=== PATIENT | female | born 1960 | race Caucasian/White ===

== ENCOUNTER 2024-11-03 03:42 | Observation (INO) ==
[2024-11-03] MEDS: BACITRACIN ZINC OINT 1 PACKET TOP STA (06:39)
--- NOTE | 2024-11-03 06:57 | ED Physician Documentation ---
History of Present Illness Stated complaint Stated Complaint: GLF, ABD PX Chief complaint Chief Complaint: Trauma Ch/Bk Additonal information Additional information: 64-year-old female presenting after fall at home at 0200 hrs. tonight. She states that she was ambulating from the bathroom when she thinks her pant leg got caught on an object. She fell forward impacting her right side of her thorax on a bookshelf. She states that she immediately had pain in the right lateral and anterior lower ribs. She states that she has pain when she breathes in deeply. Rates her pain currently as a 6 out of 10. Endorses mild pain only if she is not moving or not breathing deeply. She states that she did not her head, did not lose consciousness. She is not on blood thinners. She denies any neck pain. She has no tenderness throughout her thoracic or lumbar spine. No abdominal tenderness, no CVA tenderness. No tense palpation on the left side of her thorax. At baseline patient has Parkinson's disease, but does not endorse any other significant medical comorbidities. Review of Systems Status of ROS: See HPI Meds/Allgy Home Medications Ambulatory Orders Medication Instructions Recorded Confirmed carbidopa 25 mg tablet 25 mg PO Q6H 05/18/24 hydrocodone 5 mg-acetaminophen 325 1 tab PO Q4H PRN pa in #25 tabs 05/18/24 07/03/24 mg tablet melatonin 10 mg capsule 10 mg PO HS PRN 05/18/2412/18 rasagiline 1 mg tablet 1 mg PO QDAY 05/18/24 rivastigmine tartrate 1.5 mg 1.5 mg PO BID 05/18/24 capsule rivastigmine tartrate 3 mg capsule 3 mg PO BID 05/18/ 5 07/03/24 Allergies Allergies Allergy/AdvReac Type Severity Reaction Status Date / Time No Known Drug Allergies Allergy Verified 11/03/24 03:51 PFSH Active Problems All Active Problems (Updated 11/03/24 @ 07:58 by Bryant Field MD) Multiple fractures of ribs of right side (Acute) Constipation (Acute) Hemorrhoids, external, thrombosed (Acute) Contusion of rib on right side (Acute) Medical History Medical History (Updated 11/03/24 @ 07:58 by Bryant Field MD) Parkinson disease Parkinsons Social History Social History Do you feel safe in your home environment?: Yes History of physical, verbal, emotional, or financial abuse?: No POLST Patient has POLST: No Exam Exam Vital Signs: Vital Signs x48h Temp Pulse Resp BP Pulse Ox 11/03/24 07:11 87 20 154/96 H 95 11/03/24 03:47 36.0 C L 83 16 135/89 H 97 Constitutional Appears approximate stated age, resting in examination bed HENMT normocephalic and head/scalp atraumatic Eyes conjunctivae normal and no scleral icterus Neck/C-Spine cervical spine nontender, cervical full ROM noted and supple Chest Significant tender to palpation in right lateral lower ribs, as well as right anterior lower ribs. Small abrasion noted at roughly eighth rib space in the right lateral ribs. Respiratory Clear breath sounds bilaterally, though diminished in the right base. Appears to be splinting on exam secondary to pain. Satting at 95% on room air. No wheeze, no rhonchi. Cardiovascular normal heart rate noted, regular rhythm noted, no murmur and peripheral pulses 2+ throughout Gastrointestinal abdomen soft to palpation, nontender to palpation and nondistended Back/Pelvis no thoracic spine tenderness, no lumbar spine tenderness, thoracic spine ROM normal, lumbar spine ROM normal and no paraspinal muscle tenderness noted Extremities normal to inspection, normal to palpation, no tenderness and full ROM Neurology ornamenter hand II-XII intact, no movement abnormality noted, no focal motor deficit noted, no sensory deficits noted and GCS 15 Psychiatry mental status grossly normal and oriented x3 Results Vitals Vitals: Vital Signs - 24 hr 11/03/24 03:47 11/03/24 07:11 Temperature 36.0 C L Pulse Rate 83 87 Respiratory Rate 16 20 Blood Pressure 135/89 H 154/96 H O2 Saturation 97 95 O2 Source Room air Room air Pain Intensity 7 Oxygen O2 Source Room air PD Medical Decision Making ED course ED course: Assessment: 64-year-old female complaining of pain in her right lateral and lower ribs after she sustained a fall in which she hit her right side against a nightstand. She did not hit her head, did not lose consciousness, she is not on blood thinners. DDx: Includes but is not limited to, rib fracture, pulmonary contusion, pleural effusion, pneumothorax, rib contusion, etc. Workup: Chest x-ray 2 view shows questionable osseous changes in the right posterior ribs [address] chest without contrast demonstrates multiple fractures between ribs 8 through 11, with multiple that are mild to moderately displaced. There is also a small pleural effusion/pulmonary contusion in the right lower lobe. No pneumothorax. Treatment: Offered patient's opioid analgesia which she refused citing adverse side effects including nausea. Patient had taken Tylenol and ibuprofen at home shortly before arrival and also denied these when these were offered. Did receive a lidocaine patch. Discussion: I paged Hospitalist medicine who recommended we call surgery, and preferred that surgery would admit this patient to their service. Given that she is 64 years old with greater than 3 rib fractures, she is an ICU candidate. Patient was signed out to Dr. Goss, pending consultation with surgery, and admission. Please refer to her note for subsequent cares for this patient completed after my shift. Discharge Plan Discharge Patient Disposition: ED Place in Observation Condition: Stable Clinical Impression: Multiple fractures of ribs of right side Prescriptions: No Action hydrocodone-acetaminophen 5-325 mg tablet 1 tab PO Q4H PRN (Reason: pain) Qty: 25 0RF carbidopa 25 mg tablet 25 mg PO Q6H melatonin 10 mg capsule 10 mg PO HS PRN rasagiline 1 mg tablet 1 mg PO QDAY rivastigmine tartrate 1.5 mg capsule 1.5 mg PO BID rivastigmine tartrate 3 mg capsule 3 mg PO BID Print Language: Djiboutian Stand Alone Forms: PCP List
[2024-11-03] MEDS: ACETAMINOPHEN 500 MG TABLET PO STA (08:29)
--- NOTE | 2024-11-03 09:15 | HISTORY & PHYSICAL EXAMINATION ---
History of Present Illness History of Present Illness HPI Comment/Other: 64F History of Parkinsons presented to the ED after mechanical fall at home at 0200 hrs. She was ambulating from the bathroom when she thinks her pant leg got caught on an object. She fell forward impacting her right side of her thorax on a bookshelf. She states that she did not her head, did not lose consciousness. She is not on blood thinners. She states that she immediately had pain in the right lateral and anterior lower ribs, worse with inspiration. She denies any neck pain, back, RUE or other pain. Has pain with inspiration but is not feeling short of breath. Is saturating at 99% on room air. She had one prior fall from chair in 04/2024 with single rib fx, visited ED but not admitted. Feels that the pain was worse the first time compared to today. Current baseline at home with her spouse she is not using any assistive walking devices, however has recently been considering a cane or walker. She has chronic constipation for which she uses MiraLAX on a as needed basis. She has a frequent upset stomach or nausea that she attributes to her Parkinson's medications which leads to poor appetite and she has experienced resultant weight loss over the last year. She is not a Parkinson's treatment and support group. Colonoscopy Questionnaire In the last 30 days have you experienced these symptoms? PFSH Active Problems All Active Problems (Updated 11/03/24 @ 11:51 by Bernadette Alvarez DO) Chronic nausea (Acute) Osteopenia (Chronic) Multiple rib fractures involving four or more ribs (Acute) Fall as cause of accidental injury at home as place of occurrence (Acute) Constipation (Acute) Medical History Medical History (Updated 11/03/24 @ 11:51 by Bernadette Alvarez DO) Hemorrhoids, external, thrombosed Parkinson disease Surgical History Surgical History (Updated 11/03/24 @ 11:51 by Bernadette Alvarez DO) History of Social History Social History Smoking Status: Never smoker Do you feel safe in your home environment?: Yes History of physical, verbal, emotional, or financial abuse?: No POLST Patient has POLST: No Meds/Allgy Home Medications Ambulatory Orders Medication Instructions Recorded Confirmed carbidopa 25 mg tablet 25 mg PO QID 05/18/24 melatonin 10 mg capsule 10 mg PO HS PRN sleep 11/03/24 rasagiline 1 mg tablet 1 mg PO DAILY 05/18/2411/03 rivastigmine tartrate 1.5 mg 1.5 mg PO BID 05/18/24 capsule rivastigmine tartrate 3 mg capsule 3 mg PO BID 5 07/03/24 carbidopa 25 mg-levodopa 100 mg See Rx Instructions .R oute .COMPLEX 11/03/24 11/03/24 tablet Allergies Allergies Allergy/AdvReac Type Severity Reaction Status Date / Time No Known Drug Allergies Allergy Verified 11/03/24 03:51 Results Diagnostic Imaging Results Diagnostic Imaging Results: positive Read contemporaneously Diagnostic Imaging Results Comments: EXAM: [id number] XR/CXR2VW ([id number]) PROCEDURE: XR Chest 2V INDICATIONS: right anterior/lateral rib pain after fall TECHNIQUE: 2 views of the chest were acquired. COMPARISON: None. FINDINGS: Surgical changes and devices: None. Lungs and pleura: No pleural effusions or pneumothorax. No consolidation. Mediastinum: Mediastinal contours appear normal. Heart size is normal. Bones and chest wall: No suspicious bony lesions. Suspect possible acute right lateral rib fractures. Overlying soft tissues appear unremarkable. IMPRESSION: No acute cardiopulmonary process. Question acute right lateral rib fractures. Findings are concordant with preliminary interpretation provided by [facility]. Reviewed by: Marcos Hurtado MD on 11/03/2024 9:17 AM PDT Approved by: Marcos Hurtado MD on 11/03/2024 9:17 AM PDT EXAM: [id number] CT/CHTWO ([id number]) PROCEDURE: CT Chest WO INDICATIONS: suspected right posterior rib fractures TECHNIQUE: A CT scan of the chest was performed. Intravenous contrast media was not administered. Images were recorded and evaluated at appropriate window settings. Reformats: axial MIP of the chest, coronal and sagittal. For radiation dose reduction, the following was used: automated exposure control, adjustment of mA and/or kV according to patient size. COMPARISON: 05/18/2024. FINDINGS: Image quality: Diagnostic. Chest wall and lower neck: No thyroid nodule which requires sonographic follow up. No axillary or supraclavicular adenopathy by size. Lungs and pleura: Question inferior basilar right pulmonary contusion versus atelectasis. Reference axial image 202 of series 10. No pneumothorax. Minimal pleural effusion and minimal basilar atelectasis. No suspicious pulmonary nodules which require follow up. Mediastinum: Heart size is mildly enlarged. Severe LAD calcifications.. No pericardial effusion. No large vessel abnormality. No mediastinal adenopathy by size criteria. Bones: There are multiple acute right-sided rib fractures as well as chronic fractures. The right 11th rib has a subacute posterior-lateral fracture as well as an acute posterior fracture which is displaced with overriding. The posterior fracture is present on axial image 2-27 of series 10. There is a chronic healed right 10th rib fracture as well as an acute posterior rib fracture with overriding and displacement. Reference axial image 188 of series 10. There is also a healed right posterior lateral ninth rib fracture as well as an acute displaced posterior right ninth rib fracture with overriding. Reference image 162. There is a nondisplaced subtle posterior right eighth rib fracture. Osteopenia with increased thoracic kyphosis.. Upper Abdomen: Unremarkable. IMPRESSION: 1. There are 4 acute posterior right rib fractures, 3 of which are displaced with overriding. 2. There are multiple chronic right-sided rib fractures as well as a subacute right-sided rib fracture. 3. No pneumothorax. 4. Small pleural effusion, minimal atelectasis, question small pulmonary contusion. 5. Osteopenia with increased thoracic kyphosis. 6. Cardiomegaly, severe LAD calcifications. Findings are concordant with preliminary interpretation provided by [facility]. Comment: Consider nonemergent DEXA bone densitometry study. Reviewed by: Marcos Hurtado MD on 11/03/2024 9:22 AM PDT Approved by: Marcos Hurtado MD on 11/03/2024 9:22 AM PDT Review of Systems Status of ROS: 10 or more systems reviewed and unremarkable except as noted in history and below Exam Exam Vital Signs: Vital Signs x48h Temp Pulse Resp BP Pulse Ox 11/03/24 07:11 87 20 154/96 H 95 11/03/24 03:47 36.0 C L 83 16 135/89 H 97 Constitutional normal general appearance, no apparent distress, average body habitus, no limitations and alert HENMT normocephalic Eyes EOMs intact bilaterally, conjunctivae normal and normal visual patrick by confrontation Neck/C-Spine visual inspection normal, cervical spine nontender and cervical full ROM noted Chest Right sided chest wall ttp, no crepitus Respiratory breath sounds equal bilaterally and normal respiratory effort Cardiovascular normal heart rate noted and regular rhythm noted Gastrointestinal abdomen normal to inspection, abdomen soft to palpation, nontender to palpation and nondistended Back/Pelvis spine normal to inspection Extremities normal to inspection, no tenderness, full ROM and no deformity Neurology no focal motor deficit noted, no sensory deficits noted and GCS 15 weak voice projection Psychiatry mental status grossly normal and oriented x3 Skin skin color normal Impression/Plan Problem List (1) Fall as cause of accidental injury at home as place of occurrence: (2) Multiple rib fractures involving four or more ribs: (3) Constipation: Qualifiers: Constipation type: slow transit constipation Qualified Code(s): K59.01 - Slow transit constipation (4) Chronic nausea: Plan 64F with Parkinsons s/p mechanical fall without head strike or LOC; resultant injury of 4 acute rib fracture, 3 or which are displaced. Also has multiple old right rib fractures. No associated pneumo- or hemo-thorax. [respiratory status] - Right 8th rib: acute nondisplaced posterior fracture (subtle) - Right 9th rib: acute posterior fracture (displaced with overriding) & old posterior lateral fracture - Right 10th rib: acute posterior fracture (displaced with overriding), & old fracture - Right 11th rib: acute posterior fracture (displaced with overriding), & subacute posterior-lateral fracture - Admit to ICU for monitoring per rib fx protocol - multimodal pain control - regular diet, gentle IVF until sure tolerating diet - continue home meds - Respiratory therapy, Occupational therapy and Physical therapy consults - trial of daily protonix and prn zofran to help with chronic nausea and poor appetite - daily miralax Bernadette Alvarez DO, FACS General Surgeon, [facility]
--- NOTE | 2024-11-03 09:18 | XRAY Report ---
PROCEDURE: XR Chest 2V INDICATIONS: right anterior/lateral rib pain after fall TECHNIQUE: 2 views of the chest were acquired. COMPARISON: None. FINDINGS: Surgical changes and devices: None. Lungs and pleura: No pleural effusions or pneumothorax. No consolidation. Mediastinum: Mediastinal contours appear normal. Heart size is normal. Bones and chest wall: No suspicious bony lesions. Suspect possible acute right lateral rib fractures. Overlying soft tissues appear unremarkable. IMPRESSION: No acute cardiopulmonary process. Question acute right lateral rib fractures. Findings are concordant with preliminary interpretation provided by [facility]. Reviewed by: Marcos Hurtado MD on 11/03/2024 9:17 AM PDT Approved by: Marcos Hurtado MD on 11/03/2024 9:17 AM PDT Station ID: [id number]
--- NOTE | 2024-11-03 09:24 | CT Report ---
PROCEDURE: CT Chest WO INDICATIONS: suspected right posterior rib fractures TECHNIQUE: A CT scan of the chest was performed. Intravenous contrast media was not administered. Images were recorded and evaluated at appropriate window settings. Reformats: axial MIP of the chest, coronal and sagittal. For radiation dose reduction, the following was used: automated exposure control, adjustment of mA and/or kV according to patient size. COMPARISON: 05/18/2024. FINDINGS: Image quality: Diagnostic. Chest wall and lower neck: No thyroid nodule which requires sonographic follow up. No axillary or supraclavicular adenopathy by size. Lungs and pleura: Question inferior basilar right pulmonary contusion versus atelectasis. Reference axial image 202 of series 10. No pneumothorax. Minimal pleural effusion and minimal basilar atelectasis. No suspicious pulmonary nodules which require follow up. Mediastinum: Heart size is mildly enlarged. Severe LAD calcifications.. No pericardial effusion. No large vessel abnormality. No mediastinal adenopathy by size criteria. Bones: There are multiple acute right-sided rib fractures as well as chronic fractures. The right 11th rib has a subacute posterior-lateral fracture as well as an acute posterior fracture which is displaced with overriding. The posterior fracture is present on axial image 2-27 of series 10. There is a chronic healed right 10th rib fracture as well as an acute posterior rib fracture with overriding and displacement. Reference axial image 188 of series 10. There is also a healed right posterior lateral ninth rib fracture as well as an acute displaced posterior right ninth rib fracture with overriding. Reference image 162. There is a nondisplaced subtle posterior right eighth rib fracture. Osteopenia with increased thoracic kyphosis.. Upper Abdomen: Unremarkable. IMPRESSION: 1. There are 4 acute posterior right rib fractures, 3 of which are displaced with overriding. 2. There are multiple chronic right-sided rib fractures as well as a subacute right-sided rib fracture. 3. No pneumothorax. 4. Small pleural effusion, minimal atelectasis, question small pulmonary contusion. 5. Osteopenia with increased thoracic kyphosis. 6. Cardiomegaly, severe LAD calcifications. Findings are concordant with preliminary interpretation provided by [facility]. Comment: Consider nonemergent DEXA bone densitometry study. Reviewed by: Marcos Hurtado MD on 11/03/2024 9:22 AM PDT Approved by: Marcos Hurtado MD on 11/03/2024 9:22 AM [facility] Station ID: [id number]
[2024-11-03] MEDS ORDERED: SODIUM CHLORIDE FLUSH 0.9% 10 ML SYRINGE IVP PRN (11:13)
[2024-11-03] MEDS ORDERED: oxyCODONE 5 MG TABLET PO PRN (11:13)
[2024-11-03] MEDS ORDERED: ONDANSETRON 4 MG/2 ML VIAL IVP PRN (11:48)
[2024-11-03 11:56] LABS: HCT - HEMATOCRIT 39.3 % (37.0-47.0); HGB - HEMOGLOBIN 13.2 g/dL (12.0-16.0); MEAN PLATELET VOLUME 10.2 fL (7.9-10.8); NRBC ABSOLUTE COUNT (AUTO) 0.00 x10^3/uL; NUCLEATED RED BLOOD CELLS AUTO 0.0 /100WBC; PLT - PLATELET COUNT 189 10^3/uL (130-450); RED CELL DISTRIBUTION WIDTH 12.3 % (12.0-15.0)
[2024-11-03 12:01] LABS: INR 1.1 (0.8-1.2); PT - PROTHROMBIN TIME 12.5 secs (9.9-12.6)
[2024-11-03 12:12] LABS: ALT ALANINE AMINOTRANSFERASE < 3 IU/L (10-60); AST ASPARTATE AMINOTRANSFERASE 15 IU/L (10-42); BUN - BLOOD UREA NITROGEN 10 mg/dL (6-20); CARBON DIOXIDE - CO2 25 mmol/L (21-32); CREATININE 0.5 mg/dL (0.6-1.3); GFR - MDRD 124 (>89)
[2024-11-03] MEDS: PANTOPRAZOLE 40 MG TABLET PO SCH (12:19)
[2024-11-03] MEDS: LACTATED RINGERS 1,000 ML IV SCH (12:29)
[2024-11-03] MEDS: ACETAMINOPHEN 500 MG TABLET PO SCH (13:17)
[2024-11-03] MEDS: IBUPROFEN 600 MG TABLET PO SCH (13:17)
[2024-11-03] MEDS: CARBIDOPA 25 MG PO SCH (13:57)
--- NOTE | 2024-11-03 14:44 | PHARMACY PROGRESS NOTE ---
Best Possible Medication History Admit Date and Time: 11/03/24 [id number] Home Medications Medication Instructions Recorded Confirmed Type carbidopa 25 mg tablet 25 mg PO QID 05/18/24 History melatonin 10 mg capsule 10 mg PO HS PRN sleep 11/03/24 History rasagiline 1 mg tablet 1 mg PO DAILY 05/18/2411/03 History carbidopa 25 mg-levodopa 100 mg See Rx Instructions .R oute .COMPLEX 11/03/24 11/03/24 History tablet Processed by: Pharmacy Medications reviewed in ED?: Yes Medication History completed: Yes Patient Interview: Completed Secondary Source(s): Prescription bottles and Spouse/Significant other [facility] Statement: As the person ultimately responsible for medication therapy, providers are able to order a medication from an existing home medication list in [facility] via the "Reconcile Routine" prior to Confirmation of that medication by business support liaison. Such practice is discouraged except when the physician, in their clinical judgment, deems that a medical need exists for a medication without regard to previous use.
[2024-11-03] MEDS: GABAPENTIN 300 MG CAPSULE PO PRN (15:03)
--- NOTE | 2024-11-03 15:19 | PT Plan of Care ---
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 Of note pt had fall in April 2024 with rib fx. PMH includes PD, diagnosed in 2017 and pt takes carbidopa/ levopoda. Pt states she was scheduled for OP neuro appt for medication review today, will need to reschedule. Please see medical record for further PMH. Pt lives in 2SH with though states she is set up for 1st level living . Normally indep at baseline and does not use AD nor other DME. Cleared for eval by MD. Upon PT eval, met sitting in b/s chair on RA, SpO2 97%, BP 107/72, HR 74. A&Ox4 but benefits from redirection to attend to tasks. Overall requires minAx1 for transfers and short distance ambulation in room. Pt is retropulsive with shuffle steps; of note last carb/ilia dosing unknown. Pt presenting with high fall risk, gait and balance impairments. Pt will benefit from skilled PT in acute setting to progress functional mobility and reduce fall risk. When medically clear, PT rec dc to SNF vs home pending improved mobility once PD meds are on board. Will update dc recs closer to time of dc. Goals Improve bed mobility to: Modified Independent Improve supine to sit to: Modified Independent Improve sit to stand to: Modified Independent Improve pivot transfer ability Modified Independent to: Improve sit to supine to: Modified Independent Improve gait ability to: SBA Assistive Device Used: Front Wheeled Walker Other gait goal: gait with least restrictive AD; plan to trial FWW vs BL walking sticks Improve Standing Balance to: Good PT Plan of Care Frequency 1-2x/day Duration Until discharge Discharge Recommendations Discharge Location SNF vs home Other TBD Transport Needs at Discharge Personal vehicle Other DME needed: FWW vs walking poles, shower chair
[2024-11-03] MEDS: RASAGILINE 1 MG PO SCH (15:27)
[2024-11-03] MEDS: CARBIDOPA LEVODOPA PO SCH (17:34)
[2024-11-03] MEDS: SODIUM CHLORIDE FLUSH 0.9% 10 ML SYRINGE IVP SCH (17:34)
[2024-11-03] MEDS ORDERED: MELATONIN 3 MG TABLET PO PRN (21:00)
[2024-11-03] MEDS ORDERED: RIVASTIGMINE 3 MG PO SCH (21:00)
[2024-11-04 05:11] LABS: BUN - BLOOD UREA NITROGEN 9.0 mg/dL (6-20); CARBON DIOXIDE - CO2 28.0 mmol/L (21-32); CREATININE 0.6 mg/dL (0.6-1.3); GFR - MDRD 100.0 (>89); PHOSPHORUS 3.4 mg/dL (2.5-5.0)
[2024-11-04 05:57] LABS: HCT - HEMATOCRIT 37.6 % (37.0-47.0); HGB - HEMOGLOBIN 12.1 g/dL (12.0-16.0); MEAN PLATELET VOLUME 11.1 fL (7.9-10.8); NRBC ABSOLUTE COUNT (AUTO) 0.00 x10^3/uL; NUCLEATED RED BLOOD CELLS AUTO 0.0 /100WBC; PLT - PLATELET COUNT 188 10^3/uL (130-450); RED CELL DISTRIBUTION WIDTH 12.5 % (12.0-15.0)
[2024-11-04] MEDS: RASAGILINE 1 MG PO SCH (06:35)
[2024-11-04] MEDS: CARBIDOPA 25 MG PO SCH (06:36)
[2024-11-04] MEDS ORDERED: RIVASTIGMINE 1.5 MG PO SCH (09:00)
--- NOTE | 2024-11-04 14:36 | XRAY Report ---
PROCEDURE: XR Chest 1V INDICATIONS: ANITA TECHNIQUE: One view of the chest was acquired. COMPARISON: 11/03/2024 FINDINGS AND IMPRESSION: Trace pleural effusions. No dense airspace disease on the single view study. Low lung volumes. No pneumothorax. Rib fractures are better seen on recent CT. Normal heart size. Patient rotation limits evaluation of the mediastinum. Degenerative osseous changes. Partially seen prominent bowel gas in the upper abdomen Reviewed by: Edmundo Gipson MD on 11/04/2024 2:34 PM PDT Approved by: Edmundo Gipson MD on 11/04/2024 2:34 PM PDT Station ID: [id number]
--- NOTE | 2024-11-04 19:04 | Discharge Summary ---
"Discharge Summary Admit Date: 11/03/24 Discharge Date: 11/04/24 Discharging Provider: Dr. Krishna Ruiz Code Status: Attempt Resuscitation DIAGNOSES Admission Diagnoses: Broken ribs. Discharge Diagnoses with Status of Each Condition: Ribs still broken but patient tolerating room air - pain controlled - no pneumothorax. HPI History of Present Illness: Exceedingly pleasant 64-year-old female with known parkinsonism who suffered her second fall with result of broken ribs. This does not appear to be a flail chest. Observation overnight has failed to reveal any hypoxia. Patient is well versed on how to do her incentive spirometry. Repeat chest x-ray failed to reveal any pneumothorax. Pain is managed on oral pain medications. CONSULTS | PROCEDURES Consultations: Dr. Bernadette Alvarez HOSPITAL COURSE Hospital Course: Uncomplicated. ALLERGIES Allergies Allergy/AdvReac Type Severity Reaction Status Date / Time No Known Drug Allergies Allergy Verified 11/03/24 03:51 MEDICATIONS Ambulatory Orders Medication Instructions Recorded Confirmed carbidopa 25 mg tablet 25 mg PO QID 05/18/24 melatonin 10 mg capsule 10 mg PO HS PRN sleep 11/03/24 rasagiline 1 mg tablet 1 mg PO DAILY 05/18/2411/03 carbidopa 25 mg-levodopa 100 mg See Rx Instructions .R oute .COMPLEX 11/03/24 11/03/24 tablet gabapentin 300 mg capsule 300 mg PO TID #90 caps 11/04 PHYSICAL EXAM AT DISCHARGE Vital Signs: Vital Signs x48h Temp Pulse Resp BP Pulse Ox 11/04/24 18:00 75 18 106/73 95 11/04/24 17:00 36.6 C 78 20 146/90 H 97 11/04/24 16:00 36.6 C 75 19 120/83 95 11/04/24 15:00 76 18 116/71 97 11/04/24 14:00 67 14 95/61 100 11/04/24 13:00 70 19 90/56 L 96 11/04/24 12:00 37.3 C 70 20 94/66 95 11/04/24 11:00 77 20 93 General Appearance: positive No acute distress and Alert Eyes Bilateral: positive Normal inspection Neck: positive Nml inspection Respiratory: positive Other Cardiovascular: positive Regular rate & rhythm Neurologic/Psychiatric: positive Oriented x3, Motor nml, Sensation nml and Mood/affect nml LABS 11/04/24 04:18 11/04/24 04:18 DIAGNOSTIC IMAGING Diagnostic Imaging Results: Final report reviewed FOLLOW UP Follow Up: Dr. Alvarez in 10 to 14 days with a previsit chest x-ray TIME SPENT Time Spent in Discharge (Minutes): 45 Discharge Plan Discharge Patient Disposition: 01 Home, Self Care Condition: Stable Medically Cleared Date:: 11/04/24 Medically Cleared Comments:: Patient does not have a pneumothorax after second episode of fall with broken ribs Prescriptions: New gabapentin 300 mg capsule 300 mg PO TID Qty: 90 2RF Continued carbidopa-levodopa 25-100 mg tablet See Rx Instructions .ROUTE .COMPLEX Patient Comments: take 2 tablets by mouth AT 7AM,10:30AM,2PM,5:30PM. Rx Instructions: take 2 tablets by mouth AT 7AM,10:30AM,2PM,5:30PM.; carbidopa 25 mg tablet 25 mg PO QID melatonin 10 mg capsule 10 mg PO HS PRN (Reason: sleep) rasagiline 1 mg tablet 1 mg PO DAILY Activity Restrictions/Additional Instructions: No scuba diving or airplane rides in next 6 weeks. Take care not to fall again. Diet: Regular Interventions: Belongings Inventory Last Done: 11/03/24 12:02 Plan of Treatment: Await healing which will take months - prevent falls. Print Language: [place] Patient Instructions: Rib Fracture (Broken Rib) Stand Alone Forms: PCP List Follow-up Care: Bernadette Alvarez DO [Provider Admit Priv/Credential, Surgery, General] Referral Note: 10-14 days with a pre-visit chest X-ray. Problems: Multiple rib fractures involving four or more ribs Vitals documented within 30 minutes of discharge?: Yes"
[2024-11-04 19:11] VITALS: BP 103/71; TEMP 97.5; O2SAT 94
--- NOTE | 2024-11-17 19:29 | ED Physician Documentation ---
ED Addendum Addendum Addendum: Patient was signed out at change of shift with plan for admission after falling and sustaining 3 rib fractures. The patient's case had been presented to the hospitalist by Dr. Bunn, but they felt that the patient should be admitted to surgery. Surgeon was not available to speak with Dr. Field and so I did speak with Dr. Alvarez, who was on-call for surgery and she did agree to admit the patient to her service for observation. Final impression: 1. Multiple rib fractures Disposition: Admit to surgery service in serious but stable condition. Discharge Plan Discharge Patient Disposition: ED Place in Observation Condition: Stable Clinical Impression: Multiple fractures of ribs of right side Interventions: ED Admission Assessment Last Done: 11/03/24 11:08 Vitals documented within 30 minutes of discharge?: Yes
== END 2024-11-04 19:12 | disposition home or self-care (01) ==
LOC: ED 03:42 → ICU 03:42 → ED 11:12
PROVIDERS: ADMIT Surgery; ATTEND Surgery